=== PATIENT | female | born 1995 ===

== ENCOUNTER 2024-08-05 21:38 | Inpatient (IN) ==
[2024-08-05] MEDS ORDERED: OXYTOCIN 30 UNITS/NSS 30 UNITS/500 ML BAG IV PRN (23:23)
[2024-08-05] MEDS ORDERED: LIDOCAINE 1% LOCAL 20 ML VIAL INFIL PRN (23:23)
[2024-08-05 23:47] LABS: Hematocrit (blood only) 33.7 % (37.0-47.0); Hemoglobin 11.3 g/dl (12.0-16.0); Mean Corpuscular Hemoglobin 27.6 pg (25.0-34.0); Mean Corpuscular Hgb Conc 33.5 g/dL (32.0-36.0); Mean Corpuscular Volume 82.4 fL (80.0-100.0); Mean Platelet Volume 10.7 fL (9.4-12.4); Platelet Count 145 K/uL (130-400); RDW Coefficient of Variation 14.2 % (11.5-14.5); RDW Standard Deviation 41.7 fL (36.4-46.3); Red Blood Count 4.09 M/uL (4.20-5.40); White Blood Count 8.42 K/ul (4.8-10.8)
[2024-08-05 23:58] LABS: Amphetamines+Metham, Urine Neg (Neg); Barbiturates, Urine Neg (Neg); Benzodiazepine, Urine Neg (Neg); Cocaine, Urine Neg (Neg); Fentanyl, Urine Neg (Neg); MDMA (Ecstacy), Urine Neg (Neg); Marijuana, Urine Neg (Neg); Methadone, Urine Neg (Neg); Opiate, Urine Neg (Neg); Phencyclidine, Urine Neg (Neg)
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
--- OUTSIDE RECORDS SUMMARY | 2024-08-05 23:58 | External Medical Summary | Summary of Care ---
Author Name Unknown Organization [facility] Address [address] [place] [address] Phone [phone] Care Team Providers Care Truck Driver Teamster Name Role Phone Sarmad MARLOW MD, Frank Wallace Primary Care Provider + Reason for Visit * Reason Onset Date Comments No Show 02/15/2024 [facility] No Show Auto mation Encounter Details Date Type Department Care Team (Late st Contact Info) Description 02/15/2024 Telephone Orthopaedics, [place] [address] [place] [address] Mario Fonseca Jr., MD [address] [place] [address] No Show ([place] No Show Automation) Allergies Active Allergy Reactions Criticality Noted Date Comments Cat Isaura 06/25/2012 documented as of this encounter (statuses as of 02/15/2024) Medications Medication Sig Dispensed Refills Start Date [...] as of this encounter (statuses as of 02/15/2024) Active Problems Problem Noted Date Diagnosed Date Moderate episode of recurrent major depressive d [...] agreement signed 12/12/2016 Single liveborn, born in [facility], delivered by vaginal delivery 12/07/2016 care following vaginal delivery 12/07 Advance care planning 08/09/2016 Overview: No, Advance Directive brochure given to patient. Supervision of other high risk , antepa rtum 07/10/2016 Abnormal quad screen 07/10/2016 Situational depression 07/10/2016 Acute blood loss anemia Substance use Estimated Date of Delivery Comme nts Yes 07/24/2024 Based on Ultraso und documented as of this encounter (statuses as of 02/15/2024) Resolved Problems Problem Noted Date Diagnosed Date Resolved Date Closed fracture of spinous p rocess of cervical vertebra 11/13/2023 12/13/2023 Overview: C7 Attention deficit hyperactiv ity disorder (ADHD) 07/10/2016 07/10/2016 Depression with anxiety 07/10/201612/2015 Supervision of other normal , antepartum 05/29/2016 09/09/2018 Overview: Problem Action Taken Date entered Entered by Date resolved Inadequate diet for Nutrition consult ordered 05/29/2016 Korina Adams RN Lack of knowledge of community services Care Management Consult ordered 05/29/2016 Korina Adams RN Problem Action Taken Date entered Entered by Date resolved First time mother Referral to P completed 06/26/2016 Korina Adams RN Problem Action [...] as of this encounter (statuses as of 02/15/2024) Immunizations Name Administration Dates Next Due HPV Vaccine, 4-Valent 09/10/2007,05/10/2007,0508/2006 Seasonal Influenza, PF, 6 M & above, [...] Answer Date Recorded PHQ-2 Score 0 09/09/2018 [place] Depression Scale Answer Date Recorded [place] Depression Scale Total 18 12/26/2023 The thought [...] on file documented as of this encounter Miscellaneous Notes * Telephone Encounter - Boubacar, No Show - 02/15/2024 5:11 AM EDT Dear Carmella Najera, Looks like you missed an appointment with MARIO FONSECA JR on 02/11/2024 at 08:15 AM. If you haven't already rescheduled, you have a couple of options: Reschedule in [employer]/scheduling Call us at [phone] Can't make a future appointment? Cancel and let someone else have your spot! It's easy to do via iLike or by calling us. Thanks for trusting [facility] with your care. We hope to see you back in our office soon. Sincerely, MARIO FONSECA JR documented in this encounter Plan of Treatment Upcoming Encounters Date Type Department Care Team (Late st Contact Info) Description 03/07/2024 12:45 PM EDT Office Visit Fleet Coordinator Obstetrics Maternal Medicine, [place] [address] [place] [address] Ralph Lozoya, [address] [place] [address] 03/07/2024 12:45 PM EDT Imaging [facility], [place] [address] [place] [address] Health Maintenance Due Date Last Done Comments Depression Monitoring 09/09/2019 09/09/2018 COVID-19 Vaccine ( season) 2023 Influenza Vaccine (FLU shot) (#1) [...] this encounter Medical Devices Implanted Type Area Ceo & Board Director Device Identifier Shelf Expiration Date Model / Serial / Lot Screw Suzanne Hl 4.0mm X40mm - [id number] Implanted:Qty : 1 on 11/13/2023 by Mario Fonseca Jr., MD at [facility] [place] Right: Ankle ANUPAM : TRAUMA [id number] / / Screw Suzanne 4.0x46 [id number] - [id number] Implanted:Qty : 2 on 11/13/2023 by Mario Fonseca Jr., MD at [facility] [place] Right: Ankle ANUPAM : TRAUMA [id number] / / 3.0 X 30 Headless Screw Implanted:Qty : 1 on 11/13/2023 by Mario Fonseca Jr., MD at [facility] [place] Right: Ankle [id number] / / 3.0 X 34 Headless Screw Implanted:Qty : 1 on 11/13/2023 by aMrio Fonseca Jr., MD at [facility] [place] Right: Ankle [id number] / / Plt Brd Lock Plt 2.0 L41mm 6h - [id number] Implanted:Qty : 1 on 11/13/2023 by Mario Fonseca Jr., MD at [facility] [place] Right: Ankle ANUPAM : TRAUMA [id number] / / 2.0 X30 Locking Screw Implanted:Qty : 1 on 11/13/2023 by Mario Fonseca Jr., MD at [facility] [place] Right: Ankle [id number] / / Screw Nlk V2 T6 2.0mm L30mm - [id number] Implanted:Qty : 1 on 11/13/2023 by Mario Fonseca Jr., MD at [facility] [place] Right: Ankle ANUPAM : TRAUMA [id number] / / Screw Nlk V2 T6 2.0mm L32mm - [id number] Implanted:Qty : 1 on 11/13/2023 by Mario Fonseca Jr., MD at [facility] [place] Right: Ankle ANUPAM : TRAUMA [id number] / / Screw Nlk V2 T6 2.0mm L28mm - [id number] Implanted:Qty : 1 on 11/13/2023 by Mario Fonseca Jr., MD at [facility] [place] Right: Ankle ANUPAM : TRAUMA [id number] / / Plt Chong Tib A3 4 H L102 R - [id number] Implanted:Qty : 1 on 11/20/2023 by Mario Fonseca Jr., MD at [facility] [place] Right: Leg Lower ANUPAM : TRAUMA [id number] / / Description:expiration date and lot number in sterile set Putty Bone Montage 10g Unit - [id number] - [id number] Implanted:Qty : 1 on 11/20/2023 by Mario Fonseca Jr., MD at [facility] [place] Right: Leg Lower [employer] [id number] 03/05/2025 OS-MON-100 1 / [id number] Screw Nlk A3 Ti 3.5x60mm - [id number] Implanted:Qty : 1 on 11/20/2023 by Mario Fonseca Jr., MD at [facility] [place] Right: Leg Lower ANUPAM : TRAUMA [id number] / / Description:expiration date and lot number in sterile set Screw Nlk A3 Ti 3.5x70mm - [id number] Implanted:Qty : 1 on 11/20/2023 by Mario Fonseca Jr., MD at [facility] [place] Right: Leg Lower ANUPAM : TRAUMA [id number] / / Description:expiration date and lot number in sterile set Screw Canc A3 Ti 4x65mm Ft - [id number] Implanted:Qty : 1 on 11/20/2023 by Mario Fonseca Jr., MD at [facility] [place] Right: Leg Lower ANUPAM : TRAUMA [id number] / / Description:expiration date and lot number in sterile set Screw Lk A3 Ti 4x65mm - [id number] Implanted:Qty : 2 on 11/20/2023 by Mario Fonseca Jr., MD at [facility] [place] Right: Leg Lower ANUPAM : TRAUMA [id number] / / Description:expiration date and lot number in sterile set Screw Nlk A3 Ti 3.5x34mm - [id number] Implanted:Qty : 1 on 11/20/2023 by Mario Fonseca Jr., MD at [facility] [place] Right: Leg Lower ANUPAM : TRAUMA [id number] / / Description:expiration date and lot number in sterile set documented as of this encounter Advance Directives * Full Code (Latest Code Status on File) Date Activated Date Inactivated Comments 11/13/2023 9:51 AM 11/23/2023 7:02 PM This order r eflects the patients wishes and were consensually agreed upon. Question Answer Comments Discussion of Advance Direct jean marie occurred with: Not Discussed due to patient's condition * Full Code Date Activated Date Inactivated Comments 12/05/2016 7:47 PM 12/07/2016 11:59 PM This order re flects the patients wishes and were consensually agreed upon. Care Teams Truck Driver Teamster Relationship Specialty Start Date End Date Frank Bañuelos III, MD [place] [address] PCP - General Family Medicine 12/13/23 documented as of this encounter
--- OUTSIDE RECORDS SUMMARY | 2024-08-05 23:58 | External Medical Summary | Summary of Care ---
Author Name Unknown Organization [facility] [address] [place] [address] Phone [phone] Care Team Providers Care Fittings Finisher Name Role Phone Sarmad MARLOW MD, Frank Wallace Primary Care Provider + Reason for Visit * Reason Onset Date Comments Fax 02/18/2024 Appt TODAY,needs dental form faxed to [facility] FAX - [phone] Encounter Details Date Type Department Care Team (Late st Contact Info) Description 02/18/2024 Telephone Gynecology/Obstetrics [facility] [address], [place] [id number] Services, Scheduling [address] [place] [address] Fax ( Appt TODAY,needs dental form faxed t... Allergies Active Allergy Reactions Criticality Noted Date Comments Cat Dander 06/25/2012 documented as of this encounter (statuses as of 05/19/2024) Medications Medication Sig Dispensed Refills Start Date [...] as of this encounter (statuses as of 05/19/2024) Active Problems Problem Noted Date Diagnosed Date screening for malformation using ultra [employer] 03/07/2024 Last Assessment & Plan: She presents [...] agreement signed 12/12/2016 Single liveborn, born in [facility], delivered by vaginal delivery 12/07/2016 care following vaginal delivery 12/07 Advance care planning 08/09/2016 Overview: No, Advance Directive brochure given to patient. Supervision of other high risk , antepa rtum 07/10/2016 Situational depression 07/10/2016 Acute blood loss anemia Substance use Estimated Date of Delivery Comme nts Yes 07/24/2024 Based on Ultraso und documented as of this encounter (statuses as of 05/19/2024) Resolved Problems Problem Noted Date Diagnosed Date Resolved Date Closed fracture of spinous p rocess of cervical vertebra 11/13/2023 12/13/2023 Overview: C7 Attention deficit hyperactiv ity disorder (ADHD) 07/10/2016 07/10/2016 Depression with anxiety 07/10/2016 12/0 12/2015 Abnormal quad screen 07/10/2016 024 Supervision [...] provided for labor and delivery 11/13/2016 Anastasiia Eric, LISA Hyperlipidemia, mixed 03/13/20122015 Chest pain 09/13/2011 07/10/2016 [...] as of this encounter (statuses as of 05/19/2024) Immunizations Name Administration Dates Next Due HPV Vaccine, 4-Valent 09/10/2007,05/10/2007,08/2006 Seasonal Influenza Vac., MDV , IM, 0.5 mL (Fluzone) 07/21/2008 Seasonal Influenza, PF, 6 M & above, IM , (FluLaval or Fluzone) 09/09/2018 Seasonal Influenza, Quadriva lent, No Preserve, IM 05/29/2016 TDAP (age 10 and older)(Boostrix) 11/13/2023, TDAP, [...] Answer Date Recorded PHQ-2 Score 0 09/09/2018 [place] Depression Scale Answer Date Recorded [place] Depression Scale Total 18 12/26/2023 The thought [...] encounter Miscellaneous Notes * Telephone Encounter - Jared Miramontes OSA - 02/18/2024 1:21 PM EDT Letter has been created and faxed. * Telephone Encounter - Radha Casillas OSA - 02/18/2024 1:02 PM EDT Patient follows [facility] for appointmentts Patient states she was given a form regarding what procedures for dental can be done while patient is Patient states she lost the form Patient states her dental appointment is TODAY, 02/17 at 3:00pm Patient asking if this dental form for patients can be faxed to [facility] at [phone] igor Thank you documented in this encounter Plan of Treatment Health Maintenance Due Date Last Done Comments Depression Monitoring 09/09/2019 09/09/2018 COVID-19 Vaccine ( season) 2024 Influenza Vaccine (FLU shot) (#1) 2024 09/09/2018, 05/29/2016, 07/21/2008 Pap Smear 12/25/2026 12/26/2023, 09/09/2018 DTap/Tdap Vaccines (8 - Td or Tdap) 11/12/2033 [...] this encounter Medical Devices Implanted Type Area Spring Crater Device Identifier Shelf Expiration Date Model / Serial / Lot Screw Suzanne Hl 4.0mm X40mm - [id number] Implanted:Qty : 1 on 11/13/2023 by Apollo Fonseca Jr., MD at [place] [facility] [place] Right: Ankle ANUPAM : TRAUMA [id number] / / Screw Suzanne 4.0x46 [id number] - [id number] Implanted:Qty : 2 on 11/13/2023 by Apollo Fonseca Jr., MD at [place] [facility] [place] Right: Ankle ANUPAM : TRAUMA [id number] / / 3.0 X 30 Headless Screw Implanted:Qty : 1 on 11/13/2023 by Apollo Fonseca Jr., MD at [place] [facility] Right: Ankle [id number] / / 3.0 X 34 Headless Screw Implanted:Qty : 1 on 11/13/2023 by Apollo Fonseca Jr., MD at [place] [facility] Right: Ankle [id number] / / Plt Brd Lock Plt 2.0 L41mm 6h - [id number] Implanted:Qty : 1 on 11/13/2023 by Apollo Fonseca Jr., MD at [facility] Right: Ankle ANUPAM : TRAUMA [id number] / / 2.0 X30 Locking Screw Implanted:Qty : 1 on 11/13/2023 by Apollo Fonseca Jr., MD at [place] [facility] Right: Ankle [id number] / / Screw Nlk V2 T6 2.0mm L30mm - [id number] Implanted:Qty : 1 on 11/13/2023 by Apollo Fonseca Jr., MD at [facility] Right: Ankle ANUPAM : TRAUMA [id number] / / Screw Nlk V2 T6 2.0mm L32mm - [id number] Implanted:Qty : 1 on 11/13/2023 by Apollo Fonseca Jr., MD at [place] [facility] Right: Ankle ANUPAM : TRAUMA [id number] / / Screw Nlk V2 T6 2.0mm L28mm - [id number] Implanted:Qty : 1 on 11/13/2023 by Apollo Fonseca Jr., MD at [place] [facility] Right: Ankle ANUPAM : TRAUMA [id number] / / Plt Chong Tib A3 4 H L102 R - [id number] Implanted:Qty : 1 on 11/20/2023 by Apollo Fonseca Jr., MD at [place] [facility] Right: Leg Lower ANUPAM : TRAUMA [id number] / / Description:expiration date and lot number in sterile set Putty Bone Montage 10g Unit - [id number] - [id number] Implanted:Qty : 1 on 11/20/2023 by Apollo Fonseca Jr., MD at [place] [facility] Right: Leg Lower [employer] [id number] 03/05/2025 OS-MON-100 1 / [id number] Screw Nlk A3 Ti 3.5x60mm - [id number] Implanted:Qty : 1 on 11/20/2023 by Apollo Fonseca Jr., MD at [place] [facility] Right: Leg Lower ANUPAM : TRAUMA [id number] / / Description:expiration date and lot number in sterile set Screw Nlk A3 Ti 3.5x70mm - [id number] Implanted:Qty : 1 on 11/20/2023 by Apollo Fonseca Jr., MD at [place] [facility] Right: Leg Lower ANUPAM : TRAUMA [id number] / / Description:expiration date and lot number in sterile set Screw Canc A3 Ti 4x65mm Ft - [id number] Implanted:Qty : 1 on 11/20/2023 by Apollo Fonseca Jr., MD at [place] [facility] Right: Leg Lower ANUPAM : TRAUMA [id number] / / Description:expiration date and lot number in sterile set Screw Lk A3 Ti 4x65mm - [id number] Implanted:Qty : 2 on 11/20/2023 by Apollo Fonseca Jr., MD at [place] [facility] Right: Leg Lower ANUPAM : TRAUMA [id number] / / Description:expiration date and lot number in sterile set Screw Nlk A3 Ti 3.5x34mm - [id number] Implanted:Qty : 1 on 11/20/2023 by Apollo Fonseca Jr., MD at [place] [facility] Right: Leg Lower ANUPAM : TRAUMA [id number] / / Description:expiration date and lot number [...] and were consensually agreed upon. Care Teams Fittings Finisher Relationship Specialty Start Date End Date Frank Bañuelos III, MD [place] [address] PCP - General Family Medicine 12/13/23 documented as of this encounter
--- OUTSIDE RECORDS SUMMARY | 2024-08-05 23:58 | External Medical Summary | Summary of Care ---
Author Name Unknown Organization [facility] Address [address] [place] [address] Phone [phone] Care Team Providers Care Life Teacher Name Role Phone Sarmad MARLOW MD, Frank Wallace Primary Care Provider + Reason for Visit * Reason Onset Date Comments No Show 03/26/2024 Encounter Details Date Type Department Care Team (Late st Contact Info) Description 03/26/2024 Telephone Gynecology/Obstetrics [facility] [address] [address] Bob Tran [address] [address] No Show Allergies Active Allergy Reactions Criticality Noted Date Comments Cat Dander 06/25/2012 documented as of this encounter (statuses as of 04/01/2024) Medications Medication Sig Dispensed Refills Start Date [...] as of this encounter (statuses as of 04/01/2024) Active Problems Problem Noted Date Diagnosed Date screening for malformation using ultra sonics 03/07/2024 Last Assessment & Plan: She presents [...] agreement signed 12/12/2016 [facility] by [facility] delivery 12/07/2016 care following vaginal delivery 12/07 Advance care planning 08/09/2016 Overview: No, Advance Directive brochure given to patient. Supervision of other high risk , antepa rtum 07/10/2016 Situational depression 07/10/2016 Acute blood loss anemia Substance use Estimated Date of Delivery Comme nts Yes 07/24/2024 Based on Ultraso und documented as of this encounter (statuses as of 04/01/2024) Resolved Problems Problem Noted Date Diagnosed Date [...] as of this encounter (statuses as of 04/01/2024) Immunizations Name Administration Dates Next Due HPV [...] Answer Date Recorded PHQ-2 Score 0 09/09/2018 [place] Depression Scale Answer Date Recorded [place] Depression Scale Total 18 12/26/2023 The thought [...] encounter Miscellaneous Notes * Telephone Encounter - Rehana Oliveira OSA - 04/01/2024 10:26 AM EDT Lvm for pt tp get rpn rescheduled. Last attempt. * Telephone Encounter - Jessi Oh OSA - 03/28/2024 11:56 AM EDT Attempt #2 made today to reach patient regarding this missed appointment but no answer again today;left message requesting patient return call to clinic to reschedule this missed appointment. * Telephone Encounter - Filiberto Sorenson OSA - 03/26/2024 9:58 AM EDT Pt no showed rpn appt today, called pt, no answer, left message on pts answering machine to call usback so we can get this appt rescheduled for her documented in this encounter Plan of Treatment Health Maintenance Due Date Last Done Comments Depression Monitoring 09/09/2019 09/09/2018 COVID-19 Vaccine (2022- season) 2023 Influenza Vaccine (FLU shot) (#1) [...] this encounter Medical Devices Implanted Type Area Environmental Program Manager Device Identifier Shelf Expiration Date Model / Serial / Lot Screw Suzanne Hl 4.0mm X40mm - [id number] Implanted:Qty : 1 on 11/13/2023 by Apollo Fonseca Jr., MD [place] [facility] Right: Ankle ANUPAM : TRAUMA [id number] / / Screw Suzanne 4.0x46 [id number] - [id number] Implanted:Qty : 2 on 11/13/2023 by Apollo Fonseca Jr., MD at [place] [facility] Right: Ankle ANUPAM : TRAUMA [id number] / / 3.0 X 30 Headless Screw Implanted:Qty : 1 on 11/13/2023 by Apollo Fonseca Jr., MD at [place] [facility] Right: Ankle [id number] / / 3.0 X 34 Headless Screw Implanted:Qty : 1 on 11/13/2023 by Apollo Fonseca Jr., MD at [place] [facility] Right: Ankle [id number] / / Plt Brd Lock Plt 2.0 L41mm 6h - [id number] Implanted:Qty : 1 on 11/13/2023 by Apollo Fonseca Jr., MD at [place] [facility] Right: Ankle ANUPAM : TRAUMA [id number] / / 2.0 X30 Locking Screw Implanted:Qty : 1 on 11/13/2023 by Apollo Fonseca Jr., MD at [place] [facility] Right: Ankle [id number] / / Screw Nlk V2 T6 2.0mm L30mm - [id number] Implanted:Qty : 1 on 11/13/2023 by Apollo Fonseca Jr., MD at [place] [facility] Right: Ankle ANUPAM : TRAUMA [id number] / / Screw Nlk V2 T6 2.0mm L32mm - [id number] Implanted:Qty : 1 on 11/13/2023 by Apollo Fonseca Jr., MD at [place] [facility] Right: Ankle ANUPAM : TRAUMA [id number] / / Screw Nlk V2 T6 2.0mm L28mm - [id number] Implanted:Qty : 1 on 11/13/2023 by Apollo Fonseca Jr., MD at [place] [facility] Right: Ankle ANUPAM : TRAUMA [id number] / / Plt Chong Tib A3 4 H L102 R - [id number] Implanted:Qty : 1 on 11/20/2023 by Apollo Fonseca Jr., MD at [place] [facility] Right: Leg Lower ANUPAM : TRAUMA [id number] / / Description:expiration date and lot number in sterile set Putty Bone Montage 10g Unit - [id number] - [id number] Implanted:Qty : 1 on 11/20/2023 by Apollo Fonseca Jr., MD at [place] [facility] [place] Right: Leg Lower [employer] [id number] 03/05/2025 OS-MON-100 1 / [id number] Screw Nlk A3 Ti 3.5x60mm - [id number] Implanted:Qty : 1 on 11/20/2023 by Apollo Fonseca Jr., MD at [place] [facility] Right: Leg Lower ANUPAM : TRAUMA [id number] / / Description:expiration date and lot number in sterile set Screw Nlk A3 Ti 3.5x70mm - [id number] Implanted:Qty : 1 on 11/20/2023 by Apollo Fonseca Jr., MD at [place] [facility] Right: Leg Lower ANUPAM : TRAUMA [id number] / / Description:expiration date and lot number in sterile set Screw Canc A3 Ti 4x65mm Ft - [id number] Implanted:Qty : 1 on 11/20/2023 by Apollo Fonseca Jr., MD at [place] [facility] Right: Leg Lower ANUPAM : TRAUMA [id number] / / Description:expiration date and lot number in sterile set Screw Lk A3 Ti 4x65mm - [id number] Implanted:Qty : 2 on 11/20/2023 by Apollo Fonseca Jr., MD at [place] [facility] Right: Leg Lower ANUPAM : TRAUMA [id number] / / Description:expiration date and lot number in sterile set Screw Nlk A3 Ti 3.5x34mm - [id number] Implanted:Qty : 1 on 11/20/2023 by Apollo Fonseca Jr., MD at [place] [facility] Right: Leg Lower ANUPAM : TRAUMA [id number] / / Description:expiration date and lot number [...] and were consensually agreed upon. Care Teams Life Teacher Relationship Specialty Start Date End Date Frank Bañuelos III, [place] [address] PCP - General Family Medicine 12/13/23 documented as of this encounter
--- OUTSIDE RECORDS SUMMARY | 2024-08-05 23:58 | External Medical Summary | Summary of Care ---
Author Name Unknown Organization [facility] Address [address] [place] [address] Phone [phone] Care Team Providers Care Developer [employer] Name Role Phone Sarmad MARLOW MD, Frank Wallace Primary Care Provider + Reason for Visit * Reason Onset Date Comments Post-Op 01/07/2024 Patient has call ed in to Cx todays PO appointment she thought it was for tomorrow and will not make it in time. Please return her call back to mobile # [phone] to advice on this matter. Encounter Details Date Type Department Care Team (Late st Contact Info) Description [facility] [address] [place] [address] Raymundo Gutierrez, Apollo Newman MD [address] [place] [address] Post-Op (Patient has called in to Cx today... Allergies Active Allergy Reactions Criticality Noted Date Comments Cat Isaura 06/25/2012 documented as of this encounter (statuses as of 04/07/2024) Medications Medication Sig Dispensed Refills Start Date [...] as of this encounter (statuses as of 04/07/2024) Active Problems Problem Noted Date Diagnosed Date screening for malformation using Nuventixs 03/07/2024 Last Assessment & Plan: She presents [...] talus 11/13/2023 Closed right tarsal navicular fracture 4 Laceration of left elbow 11/13/2023 Lactic acidosis [...] agreement signed 12/12/2016 Single liveborn, born in [facility], delivered by vaginal delivery 12/07/2016 care following vaginal delivery 12/07 Advance care planning 08/09/2016 Overview: No, Advance Directive brochure given to patient. Supervision of other high risk , antepa rtum 07/10/2016 Situational depression 07/10/2016 Acute blood loss anemia Substance use Estimated Date of Delivery Comme nts Yes 07/24/2024 Based on Ultraso und documented as of this encounter (statuses as of 04/07/2024) Resolved Problems Problem Noted Date Diagnosed Date Resolved Date Closed fracture of spinous p rocess of cervical vertebra 11/13/2023 12/13/2023 Overview: C7 Attention deficit hyperactiv ity disorder (ADHD) 07/10/2016 07/10/2016 Depression with anxiety 07/10/2016 1212/2015 Abnormal quad screen 07/10/2016 024 Supervision of [...] as of this encounter (statuses as of 04/07/2024) Immunizations Name Administration Dates Next Due HPV Vaccine, 4-Valent 09/10/2007,05/10/2007,050 08/2006 Seasonal Influenza, PF, 6 M & above, IM , (FluLaval or Fluzone) 09/09/2018 Seasonal Influenza, Quadriva lent, No Preserve, IM 05/29/2016 Seasonal Influenza, Trivalen t, (IIV3), with Preserv, (Fluzone) 07/21/2008 TDAP (age 10 and older)(Boostrix) 11/13/2023, [...] Answer Date Recorded PHQ-2 Score 0 09/09/2018 Nedrow Depression Scale Answer Date Recorded Nedrow Depression Scale Total 18 12/26/2023 The thought [...] encounter Miscellaneous Notes * Telephone Encounter - Tadeo Robles OSA - 01/08/2024 1:50 PM EDT Appt scheduled * Telephone Encounter - Lianne Malone OSA - 01/07/2024 9:46 AM EDT Patient has called in to todays PO appointment she thought it was for tomorrow and will not makeit in time. Please return her call back to mobile # [phone] to advice on this matter. Silverio is off today and per Mireya to send a message to the appropriate teams due to that. documented in this encounter Plan of Treatment [...] this encounter Medical Devices Implanted Type Area Engine Boss Device Identifier Shelf Expiration Date Model / Serial / Lot Screw Suzanne Hl 4.0mm X40mm - [id number] Implanted:Qty : 1 on 11/13/2023 by Apollo Fonseca Jr., [place] [facility] [place] Ankle ANUPAM : TRAUMA [id number] / / Screw Suzanne 4.0x46 [id number] - [id number] Implanted:Qty : 2 on 11/13/2023 by Apollo Fonseca Jr., [place] [facility] [place] Ankle ANUPAM : TRAUMA [id number] / / 3.0 X 30 Headless Screw Implanted:Qty : 1 on 11/13/2023 by Apollo Fonseca Jr., [place] [facility] [place]: Ankle [id number] / / 3.0 X 34 Headless Screw Implanted:Qty : 1 on 11/13/2023 by Apollo Fonseca Jr., [place] [facility] [place] Ankle [id number] / / Plt Brd Lock Plt 2.0 L41mm 6h - [id number] Implanted:Qty : 1 on 11/13/2023 by Apollo Fonseca Jr., [place] [facility] [place]: Ankle ANUPAM : TRAUMA [id number] / / 2.0 X30 Locking Screw Implanted:Qty : 1 on 11/13/2023 by Apollo Fonseca Jr., [place] [facility] [place]: Ankle [id number] / / Screw Nlk V2 T6 2.0mm L30mm - [id number] Implanted:Qty : 1 on 11/13/2023 by Apollo Fonseca Jr., [place] [facility] [place] Ankle ANUPAM : TRAUMA [id number] / / Screw Nlk V2 T6 2.0mm L32mm - [id number] Implanted:Qty : 1 on 11/13/2023 by Apollo Fonseca Jr., [place] [facility] [place] Ankle ANUPAM : TRAUMA [id number] / / Screw Nlk V2 T6 2.0mm L28mm - [id number] Implanted:Qty : 1 on 11/13/2023 by Apollo Fonseca Jr., [place] [facility] [place]: Ankle ANUPAM : TRAUMA [id number] / / Plt Chong Tib A3 4 H L102 R - [id number] Implanted:Qty : 1 on 11/20/2023 by Apollo Fonseca Jr., [place] [facility] [place]: Leg Lower ANUPAM : TRAUMA [id number] / / Description:expiration date and lot number in sterile set Putty Bone Montage 10g Unit - [id number] - [id number] Implanted:Qty : 1 on 11/20/2023 by Apollo Fonseca Jr., [place] [facility] [place]: Leg Lower [employer] [id number] 03/05/2025 OS-MON-100 1 / [id number] Screw Nlk A3 Ti 3.5x60mm - [id number] Implanted:Qty : 1 on 11/20/2023 by Apollo Fonseca Jr., [place] [facility] [place]: Leg Lower ANUPAM : TRAUMA [id number] / / Description:expiration date and lot number in sterile set Screw Nlk A3 Ti 3.5x70mm - [id number] Implanted:Qty : 1 on 11/20/2023 by Apollo Fonseca Jr., [place] [facility] [place]: Leg Lower ANUPAM : TRAUMA [id number] / / Description:expiration date and lot number in sterile set Screw Canc A3 Ti 4x65mm Ft - [id number] Implanted:Qty : 1 on 11/20/2023 by Apollo Fonseca Jr., [place] [facility] [place]: Leg Lower ANUPAM : TRAUMA [id number] / / Description:expiration date and lot number in sterile set Screw Lk A3 Ti 4x65mm - [id number] Implanted:Qty : 2 on 11/20/2023 by Apollo Fonseca Jr., [place] [facility] [place]: Leg Lower ANUPAM : TRAUMA [id number] / / Description:expiration date and lot number in sterile set Screw Nlk A3 Ti 3.5x34mm - [id number] Implanted:Qty : 1 on 11/20/2023 by Apollo Fonseca Jr., [place] [facility] [place]: Leg Lower ANUPAM : TRAUMA [id number] / / Description:expiration date and lot number [...] and were consensually agreed upon. Care Teams Developer Trading Systems Relationship Specialty Start Date End Date Frank Bañuelos III, MD [place] [id number] PCP - General Family Medicine 12/13/23 documented as of this encounter
[2024-08-06 00:04] LABS: Albumin Globulin Ratio 0.9 (0.9-2); Albumin Level 3.3 gm/dl (3.4-5.0); BUN Creatinine Ratio 12.3 (10-20); Bilirubin,Total 0.3 mg/dl (0.2-1.0); Calcium 8.6 mg/dl (8.6-10.3); Creatinine Clr Calc Pharmacy 134.2 ml/min; Globulin 3.6 gm/dl (2.5-4.0); Potassium 3.8 mmol/L (3.5-5.1); Total Protein 6.9 gm/dl (6.0-8.3)
[2024-08-06 00:28] LABS: HIV 4th Gen(HIV 1,2 AB+p24 Ag Negative (Negative)
[2024-08-06] MEDS: DINOPROSTONE 10 MG INSERT PV ONE (00:30)
[2024-08-06 00:34] LABS: Hep B Surface Ag with confirm Negative (Negative)
[2024-08-06 00:35] LABS: Treponema pallidum RflxConfirm Negative (Negative)
[2024-08-06 00:39] LABS: Hep C Ab Rflx HepCQuant RNA Negative (Negative)
[2024-08-06 02:40] LABS: Rubella IgG Ab Immune (Immune); Rubella IgG Qnt 134.4 IU/mL
[2024-08-06] MEDS: BUPRENORPHINE/NALOXONE 8/2 MG TAB SL SCH (09:29)
[2024-08-06] MEDS ORDERED: MAGNESIUM HYDROXIDE SUSP 30 ML UDC PO PRN (09:44)
--- NOTE | 2024-08-06 09:44 | Obstetrical Progress Note ---
Date of Service August 06, 2024 Assessment & Plan Admission and Anticipated Discharge Date Admission Date: August 05, 2024 Subjective Patient is a 28 yo at 41.5 wks who was admitted by Dr Schulte for IOL for postdates Reviewed her records and confirmed with her. Cervidil was placed at 00:30 am She denies pain/ VB/ LOF +FM VSS Afebrile VE: 3-4 cm/ 60%/-3, hard stool in rectum, cervidil came out Plan to shower, eat and start Oxytocin per protocol PCN for unknown GBS All questions were answered. Results & Data Vital Signs (Past 12 Hours) Vital Signs Temp Pulse Resp BP O2 Del Method 08/06/24 07:32 65 109/57 L 08/06/24 07:29 36.6 C 14 08/06/24 02:32 36.6 C 66 18 105/59 L 08/05/24 22:20 36.5 C 18 Room Air 08/05/24 22:10 18 08/05/24 22:10 36.5 C 18 135/77
[2024-08-06] MEDS: PENICILLIN GK 6 MU in SODIUM CHLORIDE 0.9% 250 ML IV STA (10:20)
[2024-08-06] MEDS: SODIUM CHLORIDE 0.9% 1,000 ML IV SCH (10:20)
[2024-08-06] MEDS: OXYTOCIN 30 UNITS/NSS 30 UNITS/500 ML BAG IV PRN (11:32)
[2024-08-06] MEDS: PENICILLIN GK 3 MU in DEXTROSE 5% 100 ML IV PRN (14:19)
[2024-08-06] MEDS ORDERED: NALOXONE HCL 1 MG in SODIUM CHLORIDE 0.9% 1,000 ML IV PRN (14:45)
[2024-08-06] MEDS ORDERED: LIDOCAINE 2% MPF LOCAL 5 ML VIAL EPI PRN (14:45)
[2024-08-06] MEDS ORDERED: diphenhydrAMINE 50 MG/ML VIAL IV PRN (14:45)
[2024-08-06] MEDS ORDERED: ePHEDrine sulfate 50 MG/ML AMP IV PRN (14:45)
[2024-08-06] MEDS ORDERED: NALOXONE HCL 0.4 MG/1 ML VIAL/CARP IV PRN (14:45)
[2024-08-06] MEDS ORDERED: SODIUM CHLORIDE 0.9% PF INJ 10 ML VIAL EPI PRN (14:45)
[2024-08-06] MEDS ORDERED: fentANYL 2 MCG/ML BUPIVacaine 0.125%-NSS 100ML BAG EPI PRN (14:45)
[2024-08-06] MEDS ORDERED: ROPIVACAINE 0.5% PF 5 MG/ML 20 ML VIAL EPI PRN (14:45)
[2024-08-06] MEDS ORDERED: BUPIVACAINE 0.25% PF 30 ML VIAL EPI PRN (14:45)
[2024-08-06] MEDS ORDERED: fentaNYL citrate PF 100 MCG/2 ML VIAL EPI PRN (14:45)
[2024-08-06] MEDS ORDERED: NALBUPHINE HCL INJ 10 MG/ML AMP IV PRN (14:45)
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
[2024-08-06] MEDS: fentaNYL citrate PF 100 MCG/2 ML VIAL ONE (15:05)
[2024-08-06] MEDS: fentANYL 2 MCG/ML BUPIVacaine 0.125%-NSS 100ML BAG ONE (15:06)
[2024-08-06] MEDS: BUPIVACAINE 0.25% PF 30 ML VIAL ONE (15:06)
[2024-08-06] MEDS: LIDOCAINE 2%/EPINEPHRINE 1:200,000 20 ML PF ONE (15:06)
[2024-08-06] MEDS: DOCUSATE SODIUM 100 MG CAP PO SCH (15:19)
--- NOTE | 2024-08-06 15:44 | Obstetrical Progress Note ---
Date of Service August 06, 2024 Assessment & Plan Admission and Anticipated Discharge Date Admission Date: August 05, 2024 Subjective Patient is comfortable now, recevied epidural for pain 2nd dose of PCN was given FHR categ I Ctxs q 3-5 min, Oxytocin is at 12 miu/min VE: 4/ 70%/ -2, AROM'ed clear fluid Continue to monitor closely Results & Data Vital Signs (Past 12 Hours) Vital Signs Temp Pulse Resp BP Pulse Ox 08/06/24 15:41 68 107/62 08/06/24 15:39 63 106/61 08/06/24 15:38 69 98 08/06/24 15:37 80 101/57 L 08/06/24 15:35 66 108/56 L 08/06/24 15:34 67 105/51 L 08/06/24 15:33 63 100 08/06/24 15:31 67 124/63 08/06/24 15:29 83 110/59 L 08/06/24 15:28 66 98 08/06/24 15:27 69 114/63 08/06/24 15:25 64 117/64 08/06/24 15:23 71 119/60 99 08/06/24 15:22 70 112/61 08/06/24 15:19 77 101/59 L 08/06/24 15:18 74 98 08/06/24 15:17 73 108/69 08/06/24 15:15 71 106/66 08/06/24 15:13 73 101/58 L 98 08/06/24 15:11 88 107/69 08/06/24 15:09 68 101/59 L 08/06/24 15:08 83 99 08/06/24 15:07 85 113/65 08/06/24 15:05 80 116/64 08/06/24 15:03 90 99 08/06/24 15:02 81 120/89 08/06/24 14:59 70 123/82 08/06/24 14:58 76 98 08/06/24 14:53 68 98 08/06/24 14:48 70 98 08/06/24 14:32 60 124/76 08/06/24 13:21 84 110/58 L 08/06/24 12:20 76 126/60 08/06/24 11:18 81 131/72 08/06/24 07:32 65 109/57 L 08/06/24 07:29 36.6 C 14
[2024-08-06] MEDS: ePHEDrine sulfate 50 MG/ML AMP ONE (17:55)
[2024-08-06] MEDS: BUPIVACAINE 0.25% PF 30 ML VIAL EPI STA (17:55)
[2024-08-06] MEDS: SODIUM CHLORIDE 0.9% PF INJ 10 ML VIAL ONE (17:55)
[2024-08-06] MEDS: fentaNYL citrate PF 100 MCG/2 ML VIAL EPI STA (17:55)
[2024-08-06] MEDS: LIDOCAINE 2%/EPINEPHRINE 1:200,000 20 ML PF EPI STA (17:55)
[2024-08-06] MEDS: SODIUM CHLORIDE 0.9% PF INJ 10 ML VIAL EPI STA (17:56)
--- NOTE | 2024-08-06 19:29 | Obstetrical Progress Note ---
Date of Service August 06, 2024 Assessment & Plan Admission and Anticipated Discharge Date Admission Date: August 05, 2024 Subjective Patient feels pressure VE; 10 ?100%/ +1-2 , large stool in rectum+ FHR categ I Start puhing wit contractions Results & Data Vital Signs (Past 12 Hours) Vital Signs Temp Pulse Resp BP Pulse Ox 08/06/24 19:23 80 99 08/06/24 19:18 77 97 08/06/24 19:13 88 99 08/06/24 19:08 77 98 08/06/24 19:03 73 97 08/06/24 19:02 80 107/59 L 08/06/24 19:01 74 92 08/06/24 18:58 73 95 08/06/24 18:56 69 94 08/06/24 18:53 76 96 08/06/24 18:48 67 101/56 L 97 08/06/24 18:43 64 95 08/06/24 18:38 67 95 08/06/24 18:37 72 94 08/06/24 18:35 16 08/06/24 18:35 16 08/06/24 18:33 70 104/51 L 97 08/06/24 18:28 72 95 08/06/24 18:23 70 87 L 08/06/24 18:22 69 92 08/06/24 18:18 70 98 08/06/24 18:17 73 122/72 08/06/24 18:13 69 95 08/06/24 18:08 74 89 L 08/06/24 18:03 94 08/06/24 18:03 76 08/06/24 18:03 72 116/68 08/06/24 18:01 70 93 08/06/24 17:58 89 98 08/06/24 17:53 69 97 08/06/24 17:48 76 97 08/06/24 17:47 75 109/61 08/06/24 17:43 72 97 08/06/24 17:38 67 97 08/06/24 17:35 16 08/06/24 17:35 16 08/06/24 17:33 74 98 08/06/24 17:32 76 127/81 08/06/24 17:30 36.7 C 77 92 08/06/24 17:28 75 99 08/06/24 17:24 71 92 08/06/24 17:23 71 94 08/06/24 17:18 85 98 08/06/24 17:17 68 120/71 08/06/24 17:13 69 96 08/06/24 17:08 62 96 08/06/24 17:03 66 95 08/06/24 17:02 64 111/64 08/06/24 16:59 64 94 08/06/24 16:58 60 95 08/06/24 16:53 62 98 08/06/24 16:49 64 124/70 08/06/24 16:48 60 97 08/06/24 16:43 63 98 08/06/24 16:39 65 92 08/06/24 16:38 66 94 08/06/24 16:35 16 08/06/24 16:35 16 08/06/24 16:33 98 08/06/24 16:33 62 08/06/24 16:33 61 117/66 08/06/24 16:28 84 97 08/06/24 16:23 70 99 08/06/24 16:18 80 98 08/06/24 16:13 68 97 08/06/24 16:12 63 107/53 L 08/06/24 16:08 60 98 08/06/24 16:07 62 110/64 08/06/24 16:04 72 139/72 08/06/24 16:03 69 99 08/06/24 15:58 68 99 08/06/24 15:57 80 116/68 08/06/24 15:53 80 122/51 L 98 08/06/24 15:49 62 103/60 08/06/24 15:48 67 97 08/06/24 15:43 70 98 08/06/24 15:41 68 107/62 08/06/24 15:39 63 106/61 08/06/24 15:38 69 98 08/06/24 15:37 80 101/57 L 08/06/24 15:35 66 18 108/56 L 08/06/24 15:34 67 105/51 L 08/06/24 15:33 63 100 08/06/24 15:31 67 124/63 08/06/24 15:30 18 08/06/24 15:30 36.6 C 18 08/06/24 15:29 83 110/59 L 08/06/24 15:28 66 98 08/06/24 15:27 69 114/63 08/06/24 15:25 64 117/64 08/06/24 15:23 71 119/60 99 08/06/24 15:22 70 112/61 08/06/24 15:20 18 08/06/24 15:20 18 08/06/24 15:19 77 101/59 L 08/06/24 15:18 74 98 08/06/24 15:17 73 108/69 08/06/24 15:15 71 106/66 08/06/24 15:13 73 101/58 L 98 08/06/24 15:11 88 107/69 08/06/24 15:09 68 101/59 L 08/06/24 15:08 83 99 08/06/24 15:07 85 113/65 08/06/24 15:05 80 18 116/64 08/06/24 15:03 90 99 08/06/24 15:02 81 120/89 08/06/24 14:59 70 123/82 08/06/24 14:58 76 98 08/06/24 14:53 68 98 08/06/24 14:50 16 08/06/24 14:50 16 08/06/24 14:48 70 98 08/06/24 14:35 16 08/06/24 14:35 16 08/06/24 14:32 60 124/76 08/06/24 14:30 16 08/06/24 14:30 16 08/06/24 14:25 18 08/06/24 14:25 18 08/06/24 13:30 18 08/06/24 13:30 36.7 C 18 08/06/24 13:21 84 110/58 L 08/06/24 12:20 76 126/60 08/06/24 11:18 81 131/72 08/06/24 07:32 65 109/57 L 08/06/24 07:29 36.6 C 14
--- NOTE | 2024-08-06 20:11 | Obstetrical Progress Note ---
Date of Service August 06, 2024 Assessment & Plan Admission and Anticipated Discharge Date Admission Date: August 05, 2024 Subjective Patient has been pushing for the last 1/2 hour, passed that stool in rectum Head is at +2 FHR categ I Continue to monitor Results & Data Vital Signs (Past 12 Hours) Vital Signs Temp Pulse Resp BP Pulse Ox 08/06/24 20:08 85 95 08/06/24 20:04 82 89 L 08/06/24 20:03 78 96 08/06/24 19:59 88 94 08/06/24 19:58 98 H 94 08/06/24 19:53 103 H 80 L 08/06/24 19:48 95 08/06/24 19:48 99 H 08/06/24 19:48 94 H 91 08/06/24 19:43 85 96 08/06/24 19:42 79 93 08/06/24 19:38 89 97 08/06/24 19:36 87 93 08/06/24 19:33 79 97 08/06/24 19:29 96 H 84 L 08/06/24 19:28 111 H 98 08/06/24 19:23 80 99 08/06/24 19:18 77 97 08/06/24 19:13 88 99 08/06/24 19:08 77 98 08/06/24 19:03 73 97 08/06/24 19:02 80 107/59 L 08/06/24 19:01 74 92 08/06/24 18:58 73 95 08/06/24 18:56 69 94 08/06/24 18:53 76 96 08/06/24 18:48 67 101/56 L 97 08/06/24 18:43 64 95 08/06/24 18:38 67 95 08/06/24 18:37 72 94 08/06/24 18:35 16 08/06/24 18:35 16 08/06/24 18:33 70 104/51 L 97 08/06/24 18:28 72 95 08/06/24 18:23 70 87 L 08/06/24 18:22 69 92 08/06/24 18:18 70 98 08/06/24 18:17 73 122/72 08/06/24 18:13 69 95 08/06/24 18:08 74 89 L 08/06/24 18:03 94 08/06/24 18:03 76 08/06/24 18:03 72 116/68 08/06/24 18:01 70 93 08/06/24 17:58 89 98 08/06/24 17:53 69 97 08/06/24 17:48 76 97 08/06/24 17:47 75 109/61 08/06/24 17:43 72 97 08/06/24 17:38 67 97 08/06/24 17:35 16 08/06/24 17:35 16 08/06/24 17:33 74 98 08/06/24 17:32 76 127/81 08/06/24 17:30 36.7 C 77 92 08/06/24 17:28 75 99 08/06/24 17:24 71 92 08/06/24 17:23 71 94 08/06/24 17:18 85 98 08/06/24 17:17 68 120/71 08/06/24 17:13 69 96 08/06/24 17:08 62 96 08/06/24 17:03 66 95 08/06/24 17:02 64 111/64 08/06/24 16:59 64 94 08/06/24 16:58 60 95 08/06/24 16:53 62 98 08/06/24 16:49 64 124/70 08/06/24 16:48 60 97 08/06/24 16:43 63 98 08/06/24 16:39 65 92 08/06/24 16:38 66 94 08/06/24 16:35 16 08/06/24 16:35 16 08/06/24 16:33 98 08/06/24 16:33 62 08/06/24 16:33 61 117/66 08/06/24 16:28 84 97 08/06/24 16:23 70 99 08/06/24 16:18 80 98 08/06/24 16:13 68 97 08/06/24 16:12 63 107/53 L 08/06/24 16:08 60 98 08/06/24 16:07 62 110/64 08/06/24 16:04 72 139/72 08/06/24 16:03 69 99 08/06/24 15:58 68 99 08/06/24 15:57 80 116/68 08/06/24 15:53 80 122/51 L 98 08/06/24 15:49 62 103/60 08/06/24 15:48 67 97 08/06/24 15:43 70 98 08/06/24 15:41 68 107/62 08/06/24 15:39 63 106/61 08/06/24 15:38 69 98 08/06/24 15:37 80 101/57 L 08/06/24 15:35 66 18 108/56 L 08/06/24 15:34 67 105/51 L 08/06/24 15:33 63 100 08/06/24 15:31 67 124/63 08/06/24 15:30 18 08/06/24 15:30 36.6 C 18 08/06/24 15:29 83 110/59 L 08/06/24 15:28 66 98 08/06/24 15:27 69 114/63 08/06/24 15:25 64 117/64 08/06/24 15:23 71 119/60 99 08/06/24 15:22 70 112/61 08/06/24 15:20 18 08/06/24 15:20 18 08/06/24 15:19 77 101/59 L 08/06/24 15:18 74 98 08/06/24 15:17 73 108/69 08/06/24 15:15 71 106/66 08/06/24 15:13 73 101/58 L 98 08/06/24 15:11 88 107/69 08/06/24 15:09 68 101/59 L 08/06/24 15:08 83 99 08/06/24 15:07 85 113/65 08/06/24 15:05 80 18 116/64 08/06/24 15:03 90 99 08/06/24 15:02 81 120/89 08/06/24 14:59 70 123/82 08/06/24 14:58 76 98 08/06/24 14:53 68 98 08/06/24 14:50 16 08/06/24 14:50 16 08/06/24 14:48 70 98 08/06/24 14:35 16 08/06/24 14:35 16 08/06/24 14:32 60 124/76 08/06/24 14:30 16 08/06/24 14:30 16 08/06/24 14:25 18 08/06/24 14:25 18 08/06/24 13:30 18 08/06/24 13:30 36.7 C 18 08/06/24 13:21 84 110/58 L 08/06/24 12:20 76 126/60 08/06/24 11:18 81 131/72
[2024-08-06] MEDS: METHYLERGONOVINE MALEATE 0.2 MG/ML AMP IM ONE (21:20)
[2024-08-06] MEDS: ceFAZolin 2000MG 2,000 MG/15 ML SYR IV STA (21:23)
[2024-08-06] MEDS ORDERED: OXYTOCIN 30 UNITS/NSS 30 UNITS/500 ML BAG IV PRN (21:36)
[2024-08-06] MEDS ORDERED: HYDROCORTISONE ACETATE 25 MG SUPP PR PRN (21:36)
--- NOTE | 2024-08-06 21:41 | Delivery Summary ---
Vaginal Delivery Summary Date of Service August 06, 2024 Vaginal Delivery Summary Patient was found to be fully dilated and desires to push. She pushed for about 1.5 hours and delivered the head and then shoulders with minimal traction. The baby was handed off to the mother. The cord was clampedx2 and cut at 1 minute. The vagina and perineum were checked and found to have small but 3rd degree perineal laceration. Rectal exam was done and noted wide genital hiatus with weak sphincter tone. The gloves were changes. Anal sphincter muscles Will help with Allis clamps on both sides, brought to the midline and sutured with 2-0 Vicryl with multiple [id number] stitches making sure good integrity and strength. Rectal exam was repeated and no sutures were felt in the rectal mucosa. gloves were changed again. The vaginal mucosa was repaired with another 2/0 vicryl and skin on s ubcuticular fashion. The placenta was delivered spontaneously as intact and complete. The uterus was explored and found to be empty. QBL was 131 ml. The fundus was firm The baby was a viable male infant, Apgars 8/9, the weight is pending. The mother and the baby tolerated the procedure well. No complications happened and I was present during whole procedure. She was given 2 g of cefazolin during repair.
[2024-08-06] MEDS: BENZOCAINE 20% SPRY 85 APPLN/85 GM CAN EXT PRN (22:42)
[2024-08-07] MEDS: IBUPROFEN 600 MG TAB PO PRN (00:02)
[2024-08-07] MEDS: MAGNESIUM HYDROXIDE SUSP 30 ML UDC PO SCH (00:03)
[2024-08-07] MEDS: ACETAMINOPHEN 325 MG TAB PO PRN (02:53)
[2024-08-07 05:58] LABS: Hematocrit (blood only) 34.5 % (37.0-47.0); Hemoglobin 11.8 g/dl (12.0-16.0); Mean Corpuscular Hgb Conc 34.2 g/dL (32.0-36.0); Mean Corpuscular Volume 81.8 fL (80.0-100.0); Mean Platelet Volume 11.3 fL (9.4-12.4); Platelet Count 174 K/uL (130-400); RDW Coefficient of Variation 14.6 % (11.5-14.5); RDW Standard Deviation 41.8 fL (36.4-46.3); Red Blood Count 4.22 M/uL (4.20-5.40); White Blood Count 12.45 K/ul (4.8-10.8)
[2024-08-07] MEDS: DOCUSATE SODIUM 100 MG CAP PO SCH (07:40)
[2024-08-07] MEDS: PRENATAL VITAMIN 1 TAB PO SCH (07:40)
[2024-08-07] MEDS: FERROUS SULFATE 325 MG TAB PO SCH (07:40)
[2024-08-07] MEDS: MEASLES, MUMPS & RUBELLA VIRUS VACCINE (MMR) 0.5ML VIAL SQ ONE (07:41)
--- NOTE | 2024-08-07 07:48 | Anesthesia Procedure Note ---
Date of Service August 07, 2024 Anesthesia Post Epidural Note Vital Signs Vital Signs: Temp Pulse Resp BP Pulse Ox O2 Del Method 36.5 C 68 16 125/85 99 Room Air 08/07/24 04:00 08/07/24 04:00 08/07/24 04:00 08/07/24 04:00 08/07/24 04:00 08/07/24 04:00 Pain Intensity Lower: Pain Intensity: 5 Episiotomy/Laceration: Pain Intensity: 5 Notes Mental Status: alert / awake / arousable and participated in evaluation Nausea / Vomiting: adequately controlled Pain: adequately controlled Airway Patency, RR, SpO2: stable & adequate BP & HR: stable & adequate Hydration State: stable & adequate Neuraxial Anesthesia: was administered and sensory block is resolving Anesthetic Complications: no major complications apparent Epidural: Removed without complications and With tip intact
--- NOTE | 2024-08-07 08:54 | Obstetrical Progress Note ---
Date of Service August 07, 2024 Assessment & Plan Admission and Anticipated Discharge Date Admission Date: August 05, 2024 Subjective abdomen soft and non tender no calf tenderness ambulating well vaginal bleeding scant hgb11.8 Results & Data Vital Signs (Past 12 Hours) Vital Signs Temp Pulse Pulse Resp BP BP Pulse Ox 08/07/24 07:24 36.5 C 62 18 100/64 95 08/07/24 04:00 36.5 C 68 16 125/85 99 08/07/24 00:13 37.0 C 08/07/24 00:10 36.9 C 68 18 145/87 H 96 08/06/24 23:31 69 130/63 08/06/24 22:47 85 131/92 08/06/24 22:17 74 152/86 H 08/06/24 22:02 76 130/62 08/06/24 21:47 78 122/60 08/06/24 21:34 89 94 08/06/24 21:32 92 H 130/58 L 08/06/24 21:30 37.6 C H 16 08/06/24 21:30 90 98 08/06/24 21:26 91 H 92 08/06/24 21:25 92 H 97 08/06/24 21:20 84 96 08/06/24 21:18 86 124/86 93 08/06/24 21:15 84 95 08/06/24 21:12 80 94 08/06/24 21:10 85 96 08/06/24 21:07 98 H 94 08/06/24 21:05 91 H 96 08/06/24 21:04 16 08/06/24 21:04 16 08/06/24 21:02 80 128/60 08/06/24 21:01 89 94 08/06/24 20:58 87 96 08/06/24 20:55 84 94 08/06/24 20:53 98 H 80 L O2 Del Method 08/07/24 07:24 Room Air 08/07/24 04:00 Room Air 08/07/24 00:13 08/07/24 00:10 Room Air 08/06/24 23:31 08/06/24 22:47 08/06/24 22:17 08/06/24 22:02 08/06/24 21:47 08/06/24 21:34 08/06/24 21:32 08/06/24 21:30 08/06/24 21:30 08/06/24 21:26 08/06/24 21:25 08/06/24 21:20 08/06/24 21:18 08/06/24 21:15 08/06/24 21:12 08/06/24 21:10 08/06/24 21:07 08/06/24 21:05 08/06/24 21:04 08/06/24 21:04 08/06/24 21:02 08/06/24 21:01 08/06/24 20:58 08/06/24 20:55 08/06/24 20:53
[2024-08-07] MEDS: POLYETHYLENE (MIRALAX) 17 GM PACK PO SCH (09:58)
[2024-08-07] MEDS: DIPHTHER/TETAN/PERTUS Vaccine (Tdap, Adol/Adult) 0.5mL IM ONE (13:38)
[2024-08-07] MEDS: bisacodyL 5 MG TABEC PO SCH (20:27)
[2024-08-08 07:40] LABS: Hematocrit (blood only) 31.5 % (37.0-47.0); Hemoglobin 10.2 g/dl (12.0-16.0)
--- NOTE | 2024-08-08 11:31 | Obstetrical Progress Note ---
Date of Service August 08, 2024 Subjective Ambulation: ambulating normally Voiding: no voiding problems Passing Gas:: Yes Diet Tolerance:: regular diet Lochia:: Small Feeding Type:: breast feeding Current Pain Level(1-10): 0 doing well. going to nesting. Physical Exam Constitutional WD/WN, vitals as above Gastrointestinal (Abdomen) Inspection/Auscultation: abdomen normal to inspection abdomen soft and non-tender. fundus firm below U. Musculoskeletal Extremities: extremities normal to inspection Results & Data Vital Signs (Past 12 Hours) Vital Signs Temp Pulse Resp BP Pulse Ox O2 Del Method 08/08/24 07:15 36.8 C 62 16 104/68 97 Room Air 08/08/24 02:30 36.5 C 68 16 116/83 Room Air Laboratory Results Laboratory Results - last 48 hr 08/07/24 08/08/24 05:34 06:53 WBC 12.45 H RBC 4.22 Hgb 11.8 L 10.2 L Hct 34.5 L 31.5 L MCV 81.8 MCH 28.0 MCHC 34.2 RDW Std Deviation 41.8 RDW Coeff of Shira 14.6 H Plt Count 174 MPV 11.3 Blood Type A Negative Antibody Screen Cancelled Screen Negative
[2024-08-08 15:50] VITALS: TEMP 97.9
[2024-08-08 17:25] VITALS: BP 106/70; PULSE 67; RESP 20; O2SAT 98
[2024-08-08] MEDS ORDERED: bisacodyL 10 MG SUPP PR PRN (21:36)
== END 2024-08-08 23:09 | disposition home or self-care (01) | DRG 768 ==
LOC: EDBD → OPB 21:38 → 4S1 21:42 → 4E2 08-07 00:16